=== PATIENT | female | born 2000 | race Caucasian/White ===

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

== ENCOUNTER → 2019-04-09 | Outpatient (CLI) | payer OTHER ==
--- NOTE | 2019-04-09 11:31 | REP ---
Clinical: Trauma. Technique: AP, lateral, bilateral oblique views right foot . Findings: The osseous structures and joint spaces are intact and normal. There is no evidence for acute fracture or dislocation. Surrounding soft tissues are unremarkable. No subcutaneous emphysema or radiodense foreign body. Impression: Normal right foot series . No acute fracture or dislocation. Electronically Signed by Howard Choudhury MD 04/09/2019 11:23 A
== END ==
LOC: M ADAMS 10:57
PROVIDERS: ATTEND Physician Assistant
DX: S90.31XA Contusion of right foot, initial encounter (principal); S90.121A Contusion of right lesser toe(s) without damage to nail, initial encounter; X58.XXXA Exposure to other specified factors, initial encounter; Y92.9 Unspecified place or not applicable

== ENCOUNTER → 2019-09-11 | Outpatient (REF) | payer OTHER ==
[2019-09-11 22:28] LABS: CHLAMYDIA DNA AMPLIFICATION NEGATIVE (NEGATIVE); GC DNA AMPLIFICATION NEGATIVE (NEGATIVE)
== END ==
LOC: M SFHCWAGY 17:32
PROVIDERS: ATTEND Nurse Practitioner Family
DX: Z11.3 Encounter for screening for infections with a predominantly sexual mode of transmission (principal)

== ENCOUNTER → 2020-03-20 | Outpatient (REF) | payer OTHER ==
[2020-03-20 17:42] LABS: APPEARANCE, URINE CLEAR (CLEAR); BACTERIA, URINE AUTO 1+ (NEGATIVE); BILIRUBIN, URINE AUTO NEGATIVE (NEGATIVE); BLOOD, URINE BLOOD NEGATIVE (NEGATIVE); COLOR, URINE STRAW (YELLOW); GLUCOSE, URINE (UA) AUTO NEGATIVE (NEGATIVE); KETONE, URINE AUTO NEGATIVE (NEGATIVE); LEUKOCYTE ESTERASE, URINE AUTO 1+ (NEGATIVE); NITRITE, URINE AUTO NEGATIVE (NEGATIVE); PROTEIN, URINE AUTO NEGATIVE (NEGATIVE); RBC, URINE AUTO 2 /HPF (0-3); SPECIFIC GRAVITY URINE AUTO 1.008 (1.002-1.035); SQUAMOUS EPITHELIAL CELL UR AU 1 /HPF (0-6); UROBILINOGEN, URINE AUTO 0.2 mg/dL (0.0-2.0); WBC, URINE AUTO 42 /HPF (0-3)
== END ==
LOC: M LAB REF 17:23
PROVIDERS: ATTEND Physician Assistant Medical
DX: N39.0 Urinary tract infection, site not specified (principal)

== ENCOUNTER → 2020-05-10 | Outpatient (CLI) | payer OTHER ==
[2020-05-10 12:57] LABS: BASO # 0.1 10^3/uL (0.0-0.2); BASO % 0.9 % (0.0-1.0); EOS # 0.3 10^3/uL (0.0-0.5); EOS % 4.4 % (0.0-3.0); HEMOGLOBIN 13.9 g/dl (12.0-15.5); LYMPH # 1.8 10^3/uL (1.5-5.0); LYMPH % 25.7 % (24.0-44.0); MEAN CORPUSCULAR HEMOGLOBIN 30.7 pg (27.0-33.0); MEAN CORPUSCULAR HGB CONC 33.1 g/dl (32.0-36.5); MEAN CORPUSCULAR VOLUME 92.7 fl (80.0-96.0); MONO # 0.4 10^3/uL (0.0-0.8); MONO % 5.5 % (0.0-5.0); NEUTROPHILS # 4.4 10^3/uL (1.5-8.5); NEUTROPHILS % 63.1 % (36.0-66.0); PLATELET COUNT, AUTOMATED 288 10^3/uL (150-450); RED BLOOD COUNT 4.53 10^6/uL (4.00-5.40)
[2020-05-10 13:33] LABS: ALBUMIN 4.3 GM/DL (3.2-5.2); ALT/SGPT 18 U/L (12-78); BILIRUBIN,TOTAL 0.3 MG/DL (0.2-1.0); BLOOD UREA NITROGEN 9 MG/DL (7-18); CALCIUM LEVEL 9.7 MG/DL (8.5-10.1); CARBON DIOXIDE LEVEL 29 MEQ/L (21-32); CHLORIDE LEVEL 104 MEQ/L (98-107); CREATININE FOR GFR 0.83 MG/DL (0.55-1.30); FERRITIN 41 NG/ML (8-252); GLUCOSE, FASTING 96 MG/DL (70-100); IRON (FE) 91 UG/DL (50-170); PERCENT SATURATION 29.7 % (13.2-45.0); POTASSIUM SERUM 4.2 MEQ/L (3.5-5.1); SODIUM LEVEL 140 MEQ/L (136-145); TOTAL IRON BINDING CAPACITY 306 UG/DL (250-450); TOTAL PROTEIN 7.2 GM/DL (6.4-8.2)
== END ==
LOC: M LABDRWAD 11:17
PROVIDERS: ATTEND Physician Assistant
DX: K58.0 Irritable bowel syndrome with diarrhea (principal)

== ENCOUNTER → 2020-09-15 | Outpatient (REF) | payer OTHER | LOC: M LAB REF 21:26 | PROVIDERS: ATTEND Physician Assistant | DX: R13.10 Dysphagia, unspecified (principal) ==

== ENCOUNTER → 2020-11-01 | Outpatient (REF) | payer OTHER | LOC: M LAB REF 17:07 | PROVIDERS: ATTEND Family Medicine | DX: R30.0 Dysuria (principal); N76.0 Acute vaginitis ==

== ENCOUNTER → 2020-11-04 | Outpatient (REF) | payer OTHER ==
[2020-11-04 13:00] LABS: BASO % 0.4 % (0.0-1.0); EOS # 0.3 10^3/uL (0.0-0.5); EOS % 2.8 % (0.0-3.0); HEMATOCRIT 42.6 % (36.0-47.0); HEMOGLOBIN 14.3 g/dl (12.0-15.5); LYMPH # 2.1 10^3/uL (1.5-5.0); LYMPH % 22.8 % (24.0-44.0); MEAN CORPUSCULAR HEMOGLOBIN 31.4 pg (27.0-33.0); MEAN CORPUSCULAR HGB CONC 33.6 g/dl (32.0-36.5); MEAN CORPUSCULAR VOLUME 93.6 fl (80.0-96.0); MONO # 0.7 10^3/uL (0.0-0.8); MONO % 7.4 % (2.0-8.0); NEUTROPHILS % 66.3 % (36.0-66.0); PLATELET COUNT, AUTOMATED 280 10^3/uL (150-450); RED BLOOD COUNT 4.55 10^6/uL (4.00-5.40)
[2020-11-04 13:28] LABS: ALBUMIN 4.3 GM/DL (3.2-5.2); ALT/SGPT 16 U/L (12-78); BILIRUBIN,TOTAL 0.5 MG/DL (0.2-1.0); BLOOD UREA NITROGEN 12 MG/DL (7-18); CALCIUM LEVEL 9.5 MG/DL (8.5-10.1); CARBON DIOXIDE LEVEL 27 MEQ/L (21-32); CHLORIDE LEVEL 107 MEQ/L (98-107); FERRITIN 18 NG/ML (8-252); GLUCOSE, FASTING 81 MG/DL (70-100); IRON (FE) 118 UG/DL (50-170); PERCENT SATURATION 33.8 % (13.2-45.0); POTASSIUM SERUM 4.2 MEQ/L (3.5-5.1); SODIUM LEVEL 140 MEQ/L (136-145); TOTAL IRON BINDING CAPACITY 349 UG/DL (250-450); TOTAL PROTEIN 7.1 GM/DL (6.4-8.2)
== END ==
LOC: M LABDRWAD 12:26
PROVIDERS: ATTEND Family Medicine
DX: N92.0 Excessive and frequent menstruation with regular cycle (principal)

== ENCOUNTER → 2020-12-09 | Outpatient (CLI) | payer OTHER ==
--- NOTE | 2020-12-09 16:17 | REP ---
INDICATION: HEAVY MENSES. COMPARISON: None. TECHNIQUE: Transabdominal and transvaginal scanning performed. FINDINGS: Uterine dimensions are 7.7 x 4.4 x 5.8 cm. Endometrial echo is 18 mm in AP dimension and centrally placed. The bladder measures 6.7 x 9.3 x 11.2cm. The right ovary has dimensions of 4.5 x 2.7 x 2.8 cm. It's Doppler flow is normal with a resistive index of 0.63. The left ovary dimensions are 2.2 x 2.1 x 2.3 cm. It's Doppler flow was normal with resistive index of 0.53. A hypoechoic structure in the right ovary measures 1.7 x 1.5 x 1.4 cm likely representing a complex dominant follicle. There is mild complex free fluid in the right adnexa. There is trace free fluid along the uterine fundus. IMPRESSION: Endometrial thickness is prominent at 18 mm. Complex dominant follicle right ovary 1.7 cm. Mild complex free fluid in the right adnexa. <Electronically signed by Joon Holliday > 12/09/20 2029
== END ==
LOC: M RAD 14:50
PROVIDERS: ATTEND Family Medicine
DX: N92.0 Excessive and frequent menstruation with regular cycle (principal)

== ENCOUNTER → 2021-02-06 | Outpatient (CLI) | payer OTHER ==
[2021-02-06 12:49] LABS: BASO % 0.5 % (0.0-1.0); EOS # 0.2 10^3/uL (0.0-0.5); EOS % 3.2 % (0.0-3.0); HEMATOCRIT 41.4 % (36.0-47.0); HEMOGLOBIN 13.5 g/dl (12.0-15.5); LYMPH # 1.4 10^3/uL (1.5-5.0); LYMPH % 18.4 % (24.0-44.0); MEAN CORPUSCULAR HEMOGLOBIN 31.3 pg (27.0-33.0); MEAN CORPUSCULAR HGB CONC 32.6 g/dl (32.0-36.5); MEAN CORPUSCULAR VOLUME 95.8 fl (80.0-96.0); MONO # 0.4 10^3/uL (0.0-0.8); MONO % 5.7 % (2.0-8.0); NEUTROPHILS # 5.4 10^3/uL (1.5-8.5); NEUTROPHILS % 72.1 % (36.0-66.0); PLATELET COUNT, AUTOMATED 295 10^3/uL (150-450); RED BLOOD COUNT 4.32 10^6/uL (4.00-5.40); WHITE BLOOD COUNT 7.5 10^3/uL (4.0-10.0)
[2021-02-06 13:04] LABS: INR 1.08; PARTIAL THROMBOPLASTIN TIME 31.5 SECONDS (25.9-37.0); PROTHROMBIN TIME 14.4 SECONDS (12.7-14.5)
[2021-02-06 13:15] LABS: HCG, SERUM QUANTITATIVE < 1.0 MIU/ML
[2021-02-06 13:19] LABS: LUTEINIZING HORMONE 5.5 mIU/mL; PROLACTIN 5.7 NG/ML
[2021-02-06 13:20] LABS: FOLLICLE STIMULATING HORMONE 7.6 mIU/mL
== END ==
LOC: M LABDRWAD 10:35
PROVIDERS: ATTEND Obstetrics & Gynecology
DX: N92.0 Excessive and frequent menstruation with regular cycle (principal); R93.89 Abnormal findings on diagnostic imaging of other specified body structures; D39.11 Neoplasm of uncertain behavior of right ovary

== ENCOUNTER → 2021-02-24 | Outpatient (CLI) | payer OTHER ==
[~2021-02-24] MED LIST: DICY10CA13 PO; HYDR-643 PO; NAPR-885 PO; TRAN650T PO
== END ==
LOC: M LABSMTC 09:28
PROVIDERS: ATTEND Anesthesiology
DX: Z01.812 Encounter for preprocedural laboratory examination (principal); Z20.822 Contact with and (suspected) exposure to COVID-19

== ENCOUNTER 2021-02-28 09:27 | Day surgery (SDC) | payer OTHER ==
[~2021-02-28] VITALS: Ht 172.7 cm; Wt 62.1 kg
[~2021-02-28 09:27] MED LIST changes: +NS 1,000 ML IV ONE
[2021-02-28] MEDS ORDERED: propofoL 200 MG/20 ML VIAL As Ordered ONE ×2 (10:01→12:09)
[2021-02-28] MEDS ORDERED: LIDOCAINE 2% 100MG/5ML SDV (FOR ANES.) As Ordered ONE (10:01)
[2021-02-28 12:57] VITALS: BP 110/68
== END 2021-02-28 12:56 | disposition home or self-care (01) ==
LOC: M OPP 09:27
PROVIDERS: ATTEND Internal Medicine Gastroenterology
DX: K58.0 Irritable bowel syndrome with diarrhea (principal); K64.8 Other hemorrhoids; F41.9 Anxiety disorder, unspecified; Z79.899 Other long term (current) drug therapy

== ENCOUNTER → 2021-08-25 | Outpatient (CLI) | payer OTHER ==
[~2021-08-25] MED LIST changes: -NS 1,000 ML IV ONE
[2021-08-25 17:31] LABS: FREE T4 1.03 NG/DL (0.76-1.46); THYROID STIMULATING HORMONE 1.34 uIU/ML (0.358-3.740)
[2021-08-25 18:17] LABS: FOLLICLE STIMULATING HORMONE 8.2 mIU/mL; LUTEINIZING HORMONE 6.2 mIU/mL
== END ==
LOC: M ADAMS 12:19
PROVIDERS: ATTEND Nurse Practitioner Adult Health
DX: R10.2 Pelvic and perineal pain (principal); N94.6 Dysmenorrhea, unspecified

== ENCOUNTER → 2021-09-14 | Outpatient (CLI) | payer OTHER | LOC: M RAD 08:48 | PROVIDERS: ATTEND Nurse Practitioner Adult Health | DX: R10.2 Pelvic and perineal pain (principal) ==

== ENCOUNTER → 2023-09-23 | Outpatient (REF) | payer OTHER ==
[~2023-09-23] MED LIST changes: +DICY-61 PO; -DICY10CA13 PO
[2023-09-23 14:19] LABS: ALBUMIN 4.3 G/DL (3.2-5.2); ALKALINE PHOSPHATASE 49 U/L (46-116); ALT/SGPT 12 U/L (7.0-40); AST/SGOT 11 U/L (<34); BILIRUBIN,TOTAL 0.5 MG/DL (0.3-1.2); BLOOD UREA NITROGEN 11 MG/DL (9-23); CALCIUM LEVEL 9.4 MG/DL (8.5-10.1); CARBON DIOXIDE LEVEL 29 MMOL/L (20-31); CHLORIDE LEVEL 105 MMOL/L (98-107); CHOLESTEROL LEVEL 176 MG/DL (<200); CHOLESTEROL RISK RATIO 3.89 (<5); CREATININE FOR GFR 0.86 MG/DL (0.55-1.30); GLOMERULAR FILTRATION RATE > 60.0 (>60); GLUCOSE, FASTING 86 MG/DL (60-100); HDL CHOLESTEROL 45.2 MG/DL (>40); LDL CHOLESTEROL 118.6 MG/DL (<100); NON-HDL-C 130.8 MG/DL; POTASSIUM SERUM 4.7 MMOL/L (3.5-5.1); SODIUM LEVEL 138 MMOL/L (136-145); TRIGLYCERIDES LEVEL 61 MG/DL (<150)
[2023-09-23 14:22] LABS: BASO % 0.9 % (0.0-1.0); EOS # 0.3 10^3/uL (0.0-0.5); EOS % 6.8 % (0.0-3.0); HEMATOCRIT 43.1 % (36.0-47.0); HEMOGLOBIN 14.5 g/dl (12.0-15.5); LYMPH # 1.9 10^3/uL (1.5-5.0); LYMPH % 41.8 % (24.0-44.0); MEAN CORPUSCULAR HEMOGLOBIN 32.1 pg (27.0-33.0); MEAN CORPUSCULAR HGB CONC 33.6 g/dl (32.0-36.5); MEAN CORPUSCULAR VOLUME 95.4 fl (80.0-96.0); MONO # 0.4 10^3/uL (0.0-0.8); MONO % 9.2 % (2.0-8.0); NEUTROPHILS # 1.9 10^3/uL (1.5-8.5); NEUTROPHILS % 41.1 % (36.0-66.0); PLATELET COUNT, AUTOMATED 270 10^3/uL (150-450); RED BLOOD COUNT 4.52 10^6/uL (4.00-5.40); WHITE BLOOD COUNT 4.6 10^3/uL (4.0-10.0)
[2023-09-23 14:23] LABS: THYROID STIMULATING HORMONE 1.768 uIU/ML (0.55-4.78)
[2023-09-23 14:39] LABS: HEMOGLOBIN A1c 4.7 % (4.0-6.0)
== END ==
LOC: M LABDRWAD 12:27
PROVIDERS: ATTEND Family Medicine
DX: Z13.29 Encounter for screening for other suspected endocrine disorder (principal); Z13.220 Encounter for screening for lipoid disorders; Z13.0 Encounter for screening for diseases of the blood and blood-forming organs and certain disorders involving the immune mechanism